=== PATIENT | female | born 1985 | race Caucasian/White ===

== ENCOUNTER → 2016-12-20 | Outpatient (CLI) | payer BC ==
[~2016-12-20] MED LIST: Lanolin EXT; MTR600X PO; PRENTAB26 PO
[2016-12-20 18:06] LABS: URINE APPEARANCE CLEAR (CLEAR); URINE BILIRUBIN NEG (NEG); URINE COLOR YELLOW; URINE EPITHELIAL CELL AUTO >30 /lpf (0-5); URINE NITRITE NEG (NEG); URINE PH 8.5 (4.5-7.5); URINE SPECIFIC GRAVITY 1.022 (1.000-1.030); UROBILINOGEN NEG (NEG)
[2016-12-20 18:09] LABS: MANUAL MICROSCOPIC REQUIRED? NO; REVIEW REQ? YES
== END | disposition home or self-care (01) ==
LOC: C.LABSPEC 16:42
PROVIDERS: ATTEND Obstetrics & Gynecology
DX: O09.32 Supervision of pregnancy with insufficient antenatal care, second trimester (principal)

== ENCOUNTER → 2016-12-24 | Outpatient (CLI) | payer BC | END | disposition home or self-care (01) | LOC: C.PAPS 16:16 | PROVIDERS: ATTEND Obstetrics & Gynecology | DX: Z34.92 Encounter for supervision of normal pregnancy, unspecified, second trimester (principal) ==

== ENCOUNTER → 2016-12-24 | Outpatient (CLI) | payer BC ==
[2016-12-24 14:26] LABS: BASO % 0.1 %; BASO ABS # 0.01 K/uL (0-0.2); COMPLETE YES; EOS % 3.9 %; HEMATOCRIT 32.8 % (37-47); IG% 0.6 %; LYMPH % 9.7 %; LYMPH ABS # 0.92 K/uL (1.2-3.4); MEAN CORPUSCULAR HGB CONC 34.5 g/dl (32-36); MEAN PLATELET VOLUME 11.5 fL (7.4-10.4); MONO % 4.9 %; NEUT % 80.8 %; PLATELET COUNT 210 K/uL (130-400); RED BLOOD COUNT 3.77 M/uL (4.2-5.4); WHITE BLOOD COUNT 9.53 K/uL (4.8-10.8)
[2016-12-24 14:48] LABS: GTGD 50 Grams
[2016-12-27 02:13] LABS: CHLAMYDIA TRACH RNA*** NOT DETECTED (NOT DETECTED); GC (NEIS GONORRHOEAE)RNA** NOT DETECTED (NOT DETECTED)
== END | disposition home or self-care (01) ==
LOC: C.LAB1850 13:01
PROVIDERS: ATTEND Obstetrics & Gynecology
DX: Z34.92 Encounter for supervision of normal pregnancy, unspecified, second trimester (principal)

== ENCOUNTER → 2017-04-08 | Outpatient (CLI) | payer BC | END | disposition home or self-care (01) | LOC: C.LAB1850 11:34 | PROVIDERS: ATTEND Obstetrics & Gynecology | DX: Z34.92 Encounter for supervision of normal pregnancy, unspecified, second trimester (principal) ==

== ENCOUNTER → 2017-05-12 | Outpatient (CLI) | payer BC | END | disposition home or self-care (01) | LOC: C.LABSPEC 15:25 | PROVIDERS: ATTEND Obstetrics & Gynecology | DX: Z34.83 Encounter for supervision of other normal pregnancy, third trimester (principal) ==

== ENCOUNTER 2017-05-20 02:22 | Inpatient (IN) | payer BC ==
[~2017-05-20] VITALS: Ht 162.6 cm; Wt 73.0 kg
[2017-05-20] MEDS ORDERED: LACTATED RINGER'S 1000ML 1,000 ML IV SCH (03:11)
[2017-05-20] MEDS ORDERED: LACTATED RINGER'S 1000ML 1,000 ML IV PRN (03:11)
[2017-05-20] MEDS ORDERED: PENICILLIN G POTASSIUM IV 6 MU in DEXTROSE 5% 250ML 250 ML IV ONE (03:15)
[2017-05-20] MEDS ORDERED: PENICILLIN G POTASSIUM IV 3 MU in DEXTROSE 5% 100ML 100 ML IV PRN (03:15)
[2017-05-20 03:33] VITALS: Ht 162.6 cm; Wt 73.0 kg
[2017-05-20] MEDS ORDERED: BUPIVACAINE 0.25% 30 ML VIAL ONE (03:39)
[2017-05-20] MEDS ORDERED: EpHEDrine SULFATE INJ 50 MG/ML AMP ONE (03:39)
[2017-05-20] MEDS ORDERED: FENTANYL CITRATE INJ 50 MCG/1 ML 2 ML VIAL ONE (03:39)
[2017-05-20] MEDS ORDERED: LACTATED RINGER'S 1000ML 500 ML IV PRN (03:42)
[2017-05-20] MEDS ORDERED: NALOXONE HCL INJ 1 MG in SODIUM CHLORIDE 0.9% 1000ML 1,000 ML IV PRN (03:42)
[2017-05-20] MEDS ORDERED: EpHEDrine SULFATE INJ 50 MG/ML AMP IV PRN (03:45)
[2017-05-20] MEDS ORDERED: FENTANYL 2MCG/ML ROPIV 1.25MG/ML 100ML BAG EPI PRN (03:45)
[2017-05-20] MEDS ORDERED: ONDANSETRON INJ 2 MG/ML 2 ML VIAL IV PRN (03:45)
[2017-05-20] MEDS ORDERED: NALBUPHINE HCL INJ 10 MG/ML AMP IV PRN (03:45)
[2017-05-20] MEDS ORDERED: NALOXONE HCL INJ 0.4 MG/1 ML VIAL/CARP IV PRN (03:45)
[2017-05-20] MEDS ORDERED: DiphenhydrAMINE HCL 50 MG/ML VIAL IV PRN (03:45)
[2017-05-20 03:47] LABS: HEMATOCRIT 29.7 % (37-47); HEMOGLOBIN 9.1 g/dL (12.0-16.0); MEAN CELL VOLUME 78.8 fL (80-100); MEAN CORPUSCULAR HEMOGLOBIN 24.1 pg (25-34); MEAN CORPUSCULAR HGB CONC 30.6 g/dl (32-36); MEAN PLATELET VOLUME 10.1 fL (7.4-10.4); PLATELET COUNT 305 K/uL (130-400); RED CELL DISTRIBUTION WIDTH CV 14.5 % (11.5-14.5); RED CELL DISTRIBUTION WIDTH SD 41.6 fL (36.4-46.3); WHITE BLOOD COUNT 13.44 K/uL (4.8-10.8)
[2017-05-20] MEDS ORDERED: FENTANYL 2MCG/ML ROPIV 1.25MG/ML 100ML BAG EPI ONE (03:47)
[2017-05-20] MEDS ORDERED: IRON1CAP (06:43)
[2017-05-20] MEDS ORDERED: OXYTOCIN 30 UNITS/500ML NSS IV ONE (07:05)
--- NOTE | 2017-05-20 08:36 | Medical Student: [facility] ---
Medical Student Delivery Note FINDINGS: Vigorous female infant with Apgars of 8 (1 minute) and 9 (5 minute) delivered spontaneously over intact perineum. Spontaneous delivery of placenta with cord blood sample obtained. Perineum was inspected and showed no laceration. Uterus was initially firm, then turned boggy, but became firm again after emptying bladder, bimanual massage, and starting pitocin drip. EBL of 300ml. LABOR NOTE: Shira Garcia is a 31 yo female now 2 with JOAN of 05/28/2017 as estimated by LMP 08/21/2016. Her labs showed GBS+, blood type B+, rubella immune, HepB negative, declined quad screen, and normal glucose screen. She presented overnight in active labor and subsequent spontaneous rupture of membranes. She had an epidural placed via anesthesia. She began to have regular contractions and progressing to full dilation and stage II labor. She pushed for approximately 10 minutes, delivering a viable female infant. Umbilical cord was clamped in 2 places and cut. Cord blood sample was obtained. Placenta was delivered spontaneously and intact. Perineum inspection showed no laceration. Uterus was initially firm after delivery of and placenta, but became slightly boggy. Uterus was examined and no residual tissue was found within uterus. After bimanual massage, starting pitocin, and catheterization with emptying of bladder, uterus became firm again and bleeding stopped. Total EBL was 300ml. Sponge, instrument, and needle count was correct x2.
[2017-05-20] MEDS ORDERED: OXYTOCIN 30 UNITS/500ML NSS IV PRN (08:45)
[2017-05-20] MEDS ORDERED: OXYCODONE/ACETAMINOPHEN 5-325 TAB PO PRN (08:45)
[2017-05-20] MEDS ORDERED: HYDROCORTISONE ACETATE 25 MG SUPP PR PRN (08:45)
[2017-05-20] MEDS ORDERED: SUPERCREAM 0.870 % 15GM JAR EXT PRN (08:45)
[2017-05-20] MEDS ORDERED: LANOLIN OINT EXT PRN (08:45)
[2017-05-20] MEDS ORDERED: BENZOCAINE 20% AER SPR 82.5 GM CAN EXT PRN (08:45)
[2017-05-20] MEDS ORDERED: IBUPROFEN 600 MG TAB PO PRN (08:45)
--- NOTE | 2017-05-20 08:59 | DELIVERY SUMMARY ---
DATE OF OPERATION: 05/20/2017 PRE-DELIVERY DIAGNOSES: 1. 31-year-old -0-0-1 at 38 weeks at 6 days. 2. Spontaneous rupture of membranes and spontaneous labor. 3. Group B strep carrier. POST-DELIVERY DIAGNOSES: Same. PROCEDURE: Spontaneous vaginal delivery. FINDINGS: Viable female with Apgars 8 and 9, weight pending. Please see nursery records. ESTIMATED BLOOD LOSS: 300 mL. COMPLICATIONS: None. DESCRIPTION OF DELIVERY: The patient progressed to complete with epidural anesthesia and felt the urge to push. She began pushing and spontaneously vaginally delivered a viable female from the cephalic presentation. The head delivered in the left occiput anterior position. No nuchal cord was noted. In an effort to assist delivery of the shoulders the patient was placed in [place] and the shoulders were delivered within one minute of delivery of the head anterior followed by posterior shoulder were delivered followed by the body. The baby was placed on the mother's abdomen and spontaneous cry was heard. The cord was doubly clamped and cut. Cord blood was obtained. The placenta was delivered spontaneously intact with a 3-vessel cord. The uterus and vagina were swept of all clots and debris. Pitocin was given. The uterus became firm. Cervix, vagina and perineum were inspected and no lacerations were noted. Mother and baby tolerated the delivery well. Sponge, instrument and needle counts were correct at the conclusion of the delivery x2. I attest to the content of the Intraoperative Record and any orders documented therein. Any exception s are noted below.
--- NOTE | 2017-05-20 09:42 | Anesthesia Procedure Note ---
Anesthesia Epidural Removal Nt Date & Time May 20, 2017 at 09:42 Vital Signs Pain Intensity: 7.0 Notes Mental Status: alert / awake / arousable, participated in evaluation Nausea / Vomiting: adequately controlled Pain: adequately controlled Airway Patency, RR, SpO2: stable & adequate BP & HR: stable & adequate Hydration State: stable & adequate Neuraxial Anesthesia: was administered, sensory block is resolved Anesthetic Complications: no major complications apparent, pt satisfied with anesthetic care Epidural: removed without complications, with tip intact
[2017-05-20 11:30] VITALS: BP 104/65; PULSE 78; TEMP 37
[2017-05-20 17:00] VITALS: BP 116/76; PULSE 92; TEMP 36.7
[2017-05-20] MEDS: DOCUSATE SODIUM 100 MG CAP PO SCH (19:45)
[2017-05-20 20:00] VITALS: BP 108/71; PULSE 71; TEMP 36.7
[2017-05-21 00:05] VITALS: BP 122/71; PULSE 78; TEMP 36.9; O2SAT 97
[2017-05-21 03:55] VITALS: BP 110/70; PULSE 68; TEMP 36.6; O2SAT 95
--- NOTE | 2017-05-21 06:28 | Progress Note ---
Subjective May 21, 2017. Subjective conversation w/ patient, physical exam, lab review Ambulation: ambulating normally Voiding: no voiding problems Passing Gas: Yes Diet Tolerance: Regular Diet Lochia: Small Feeding Type: Breast Feeding Pain: Minimal and controlled with oral pain meds Objective Vital Signs Date Time Temp Pulse Resp B/P (MAP) Pulse Ox O2 Delivery O2 Flow Rate FiO2 05/21/17 03:55 36.6 68 16 110/70 (83) 95 Room Air 05/21/17 00:05 Room Air 05/21/17 00:05 36.9 78 16 122/71 (88) 97 Room Air 05/20/17 20:00 36.7 71 20 108/71 (83) Room Air 05/20/17 17:00 Room Air 05/20/17 17:00 36.7 92 16 116/76 (89) Room Air 05/20/17 11:30 Room Air 05/20/17 11:30 37.0 78 16 104/65 (78) Room Air Physical Exam General Appearance: WELL-APPEARING, WD/WN, NO APPARENT DISTRESS Fundus: Firm, Non-Tender, Relation to Umbilicus (at u) Extremities: non-tender, normal inspection Laboratory Results Last 24 Hours Test 05/21/17 04:44 Assessment and Plan Post- Day#: 1 Continue Routine Care: Doing well. Routine care. Continue to work on breast feeding.
[2017-05-21 06:52] LABS: HEMATOCRIT 25.1 % (37-47); HEMOGLOBIN 7.8 g/dL (12.0-16.0)
[2017-05-21 08:00] VITALS: BP 104/67; PULSE 65; TEMP 36.7; O2SAT 95
[2017-05-21] MEDS: DOCUSATE SODIUM 100 MG CAP PO SCH (08:09)
--- NOTE | 2017-05-21 10:54 | Discharge Instructions ---
Discharge Instructions Date of Service May 21, 2017. Admission Reason for Admission: Spontaneous Onset Of Labor Discharge Discharge Diagnosis / Problem: vaginal delivery Discharge Goals Goal(s): Routine recovery after delivery Medications Continue Dispensed Medications: supercream, dermaplast, tucks, lansinoh Activity Recommendations Activity Limitations: per Instructions/Follow-up section . Instructions / Follow-Up Instructions / Follow-Up ACTIVITY RECOMMENDATIONS: * Gradual return to full activity over the next 2-3 weeks. * No lifting - nothing heavier than baby over the next 2-3 weeks. * Do not engage in vigorous exercise, sexual activity or sports until cleared by your physician. * Do not drive or operate any motorized equipment until cleared by your physician. * You may shower/bathe daily. MEDICATIONS: For discomfort or pain, you may use Acetaminophen (Tylenol), Ibuprofen (Advil), or Naproxen (Aleve) following the package directions. For constipation you may use Colace following the package directions. BREAST CARE: If you are not breast feeding: * Wear a supportive bra 24 hours a day for one to two weeks. * Avoid stimulating your breasts and nipples as much as possible during the first few weeks after delivery. * When taking a shower, have the warm water hit your back, not breasts. * When your breasts feel full, apply ice packs. Usually three to four times a day helps ease the discomfort. * Take a mild pain medication (Tylenol / Motrin) when you are uncomfortable. If breast feeding: * Use breast milk to lubricate nipples. Lansinoh cream may be used for sore nipples. You do not need to remove cream prior to breast feeding. If using a different brand of cream, check the label for directions regarding removal of cream prior to nursing. * Wear a supportive bra. * If having problems with breasts or breast feeding, call a senior talent management consultant or your health care provider. EPISIOTOMY CARE: After delivery, if you have an episiotomy (stitches), the following steps will ease discomfort and aid healing. * For the first 24 hours after delivery, place ice packs next to your episiotomy to help reduce swelling. * After the first 24 hour-period, sitz baths, either portable or in the tub, are suggested. A shower with a shower arm sprayed over the episiotomy may be comforting. * Ladi care should be done after each voiding and bowel movement. Squirt warm water from a plastic bottle over the perineum (region of the body between the anus and urinary opening) and pat dry. * Use Dermoplast to ease discomfort. Shake container. [place] directly over the episiotomy. Place a Tucks on a clean sanitary pad next to your episiotomy. SPECIAL CARE INSTRUCTIONS: When you are discharged from the hospital, it is important for you to follow the instructions listed below: * During the first week at home, you should be able to care for yourself and your baby. In addition, the usual light household activities are encouraged. * Limit your activities to the way you feel. Do not try to clean the house or move furniture. Be sensible. * If you actively engage in sports and have done so up until the time of your delivery, you may resume these activities as soon as you feel able. This may take up to one month or even longer. Use good judgment. * Continue to take your vitamins for at least six weeks after the of your baby. * Your diet need not be limited unless you were on a special diet before your delivery. Breast-feeding mothers need around 2500 calories per day and at least 64-80 ounces of fluid per day (8 to 10 glasses). * You should eat foods from the four major food groups. Crash diets or fad diets are to be avoided. Eating lean meats, fresh fruits and vegetables, low-fat dairy products, high fiber foods and a regular exercise program, will help you get back to your pre- weight without putting your health at risk. * Constipation is sometimes a problem after delivery. Take a mild laxative as needed. If breast feeding, Milk of Magnesia is acceptable to use. You may use a suppository or Fleets enema if no episiotomy. * A daily shower or tub bath is suggested. Be sure to thoroughly and gently dry the perineum. * A bloody vaginal discharge will usually continue until around four weeks post . A small amount of bleeding may continue for as long as six weeks. Vaginal discharge changes from the bright red bleeding after delivery to pink then brownish and finally yellowish-pink before becoming white and disappearing. * Bleeding may increase with activity. Your first period may come in 4-8 weeks. If you are breast feeding, your period may be delayed even longer. * [place] (sex) can begin whenever both you and your partner feel comfortable and do not have any form of genital infection. It is recommended that you wait at least six weeks for internal and external healing to occur. If you have questions, please talk to your health care practitioner. A condom should be used to prevent infection and . * Foreplay, gentle intercourse and lubrication is very important the first several times to prevent pain. A water-based lubricant such as K-Y jelly or Astroglide may be used. * If you have RH negative blood and your baby is RH positive, you will receive RHOGAM by injection prior to discharge. The nurse will give you a card to keep with you that has the date and place that you received RHOGAM after delivery. * During your care, you had a Rubella screen done to check for the presence of rubella antibodies in your blood. If your test was negative, you will receive a Rubella vaccine prior to discharge. This vaccine may cause a fever, soreness at the injection site and flu-like symptoms. If these symptoms persist, notify your health care practitioner. is not advised for one month after a Rubella vaccine. * Verbalizes understanding of car seat law as reviewed with patient nursing. * Car Seat hand-out given and reviewed with patient by nursing. * Shaken baby information reviewed with patient by nursing. Call you doctor if: * Heavy bleeding (saturating several pads an hour) or passing clots the size of your fist. * A fever >101 degrees F (38.3 degrees C) on two occasions four hours apart and /or chills. * Unusual pain in the pelvic or vaginal areas. * "Baby Blues" lasting longer than two weeks. If you have any questions or concerns, call your health care practitioner at . FOLLOW UP VISIT: * Please call the office at to schedule a 6 week examination. It is important you keep this appointment. It is important for you to make arrangements for either yearly or twice yearly check-ups thereafter. Current Hospital Diet Patient's current hospital diet: Vegetarian Diet Discharge Diet Recommended Diet: Regular OB Diet Pending Studies Studies pending at discharge: no Medical Emergencies . Who to Call and When: Medical Emergencies: If at any time you feel your situation is an emergency, please call [phone] immediately. . Non-Emergent Contact Non-Emergency issues call your: Senior Clinical Study Manager . . "Provider Documentation" section prepared by Fletcher Rios. . VTE Core Measure Inpt VTE Proph given/why not?: Treatment not indicated
[2017-05-21 15:45] VITALS: BP 128/78; PULSE 69; TEMP 36.9; O2SAT 96
[2017-05-21 18:07] VITALS: BP_DIAS 78; PULSE 69; TEMP 36.9
[2017-05-21] MEDS ORDERED: BISACODYL 5 MG TABEC PO SCH (20:00)
[2017-05-22] MEDS ORDERED: BISACODYL 10 MG SUPP PR PRN (07:00)
== END 2017-05-21 19:43 | disposition home or self-care (01) | DRG 775 ==
LOC: C.OPB 02:22 → C.LD 02:22 → C.OPB 03:13 → C.OBG 11:00
PROVIDERS: ADMIT Obstetrics & Gynecology; ATTEND Obstetrics & Gynecology
PROC: 10E0XZZ Delivery of Products of Conception, External Approach (ICD-10-PCS; principal; 2017-05-20)
DX: O99.824 Streptococcus B carrier state complicating childbirth (principal); O09.33 Supervision of pregnancy with insufficient antenatal care, third trimester; Z3A.38 38 weeks gestation of pregnancy; Z37.0 Single live birth